=== PATIENT | female | born 1990 | race Caucasian/White ===

== ENCOUNTER 2016-09-11 21:17 | Emergency (ER) | payer BC ==
--- NOTE | 2016-09-12 00:18 | ER Document Report ---
ED General - General Chief Complaint: Palpitations Stated Complaint: CHEST PAIN Time Seen by Provider: 09/12/16 00:16 Notes: Patient is a 25-year-old female who presents with complaints of intermittent episodes of where she becomes emotionally upset and feels as if her heart starts racing. She gets numbness and tingling to her fingertips and develops chest pain. She says when she calms down the symptoms go away. They have been ongoing intermittently for 2 weeks. She says that she is otherwise stressed. Her dad is dying of a terminal lung illness, she had to recently move homes. She said she has been on Prozac and trazodone. She stopped seeing her psychiatrist and counselor approximately 2 months ago. She has been off her Prozac for approximately 2 weeks. TRAVEL OUTSIDE OF THE [place] IN LAST 30 DAYS: No Past Medical History - Social History Smoking Status: Current Every Day Smoker Chew tobacco use (# tins/day): No Frequency of alcohol use: None Drug Abuse: None Family History: Reviewed & Not Pertinent Renal/ Medical History: Denies: Hx Peritoneal Dialysis - Immunizations Hx Diphtheria, Pertussis, Tetanus Vaccination: Yes Review of Systems - Review of Systems Notes: My Normal Review Basic REVIEW OF SYSTEMS: CONSTITUTIONAL : Denies fever, chills, or sweats. Denies recent illness. EENT: Denies eye, ear, throat, or mouth pain or symptoms. Denies nasal or sinus congestion. CARDIOVASCULAR: intermittent Chest pain RESPIRATORY: Denies cough, cold, or chest congestion. Denies shortness of breath, difficulty breathing, or wheezing. GASTROINTESTINAL: Denies abdominal pain. Denies nausea, vomiting, or diarrhea. GENITOURINARY: Denies difficulty urinating, painful urination, burning, frequency, or blood in urine. FEMALE GENITOURINARY: Denies vaginal bleeding, abnormal or irregular periods. MUSCULOSKELETAL: Denies neck or back pain or joint pain or swelling. SKIN: Denies rash or skin lesions. NEUROLOGICAL: Denies altered mental status or loss of consciousness. Denies headache. Denies weakness or paralysis or loss of use of either side. Denies problems with gait or speech. Denies sensory or motor loss. PSYCHIATRIC: Anxiety and stress. ALL OTHER SYSTEMS REVIEWED AND NEGATIVE. Physical Exam - Vital signs Vitals: Temp Pulse Resp BP Pulse Ox 98.1 F 75 16 117/67 100 09/11/16 21:53 09/11/16 21:53 09/11/16 21:53 09/11/16 21:53 09/11/16 21:53 - Notes Notes: General Appearance: Well nourished, alert, cooperative, no acute distress, no obvious discomfort. Vitals: reviewed, See vital signs table. Head: no swelling or tenderness to the head Eyes: PERRL, EOMI, Conjuctiva clear Mouth: No decreasd moisture Neck: Supple, no neck tenderness, No thyromegaly Lungs: No wheezing, No rales, No rhonci, No accessory muscle use, good air exchange bilaterally. Heart: Normal rate, Regular rythm, No murmur, no rub Abdomen: Normal BS, soft, No rigidity, No abdominal tenderness, No guarding, no rebound, no abdominal masses, no organomegaly Extremities: strength 5/5 in all extremities, good pulses in all extremities, no swelling or tenderness in the extremities, no edema. Skin: warm, dry, appropriate color, no rash Neuro: speech clear, oriented x 3, normal affect, responds appropriately to questions. Psychiatric: Patient becomes emotionally upset when talking about the episodes. She starts to cry. Course - Vital Signs Vital signs: Temp Pulse Resp BP Pulse Ox 98.1 F 75 19 129/75 H 99 09/11/16 21:53 09/11/16 21:53 09/12/16 01:00 09/12/16 01:14 09/12/16 01:00 - EKG Interpretation by Me Additional EKG results interpreted by me: 09/12/16 00:17 EKG is reviewed and interpreted by me. EKG shows normal sinus rhythm with rate of [address] segment elevation or depression. Patient does have some nonspecific T-wave inversions in anterior leads. TX interval, QRS duration, QTc intervals are within normal range. No old EKG available for comparison. - Transfer of Care Notes: 09/12/16 07:00 Patient's symptoms are very stress related. She starts crying when she talks about the stress that she has been under. I did offer for her to speak with psychiatry. Patient initially said yes and then changes her mind and wants to go home and follow-up with her psychiatrist. I will re-prescribe her Prozac. She denies being suicidal. Patient encouraged her come back to ER anytime for reevaluation and for treatment. I informed her that I strongly suggest to return immediately if she has any thoughts of suicide or feel that she has worsening depression or uncontrollable anxiety. Patient agrees with plan and will be discharged home. Dictation of this chart was performed using voice recognition software; therefore, there may be some unintended grammatical errors. Discharge - Discharge Clinical Impression: Anxiety, Stress Condition: Good Disposition: HOME, SELF-CARE Additional Instructions: Anxiety The physician feels that some of your health problems are being caused by anxiety. Anxiety affects your health in many ways. Anxiety alone can cause palpitations, sweats, chest pains, abdominal pains, shortness of breath, and headaches. It contributes to ulcer disease, high blood pressure, irritable bowel syndrome, and has been shown to cause flare-ups of many other diseases. Anxiety is not a simple disorder to treat. If the anxiety is due to recent life stresses, you may simply need time to "work through" the changes. If the anxiety is due to an underlying unhappiness with yourself or due to psychiatric disturbance, professional help will be needed. Your physician can refer you for further help if needed. Anti-anxiety medication is occasionally given if the stress is acute or if you are having trouble sleeping. Chronic or frequent use of these medications is not a good idea because the body becomes reliant on it, preventing you from dealing with life's normal stresses. Please have a low threshold to return to the ER if you have severe depression, thoughts of wanting to hurt yourself, or feel that your symptoms are worsening. Please call your psychiatrist to make a close follow up appointment. Prescriptions: Fluoxetine HCl [Prozac 20 mg Capsule] 20 mg PO DAILY #30 capsule
[2016-09-12 01:15] VITALS: BP 129/75
--- NOTE | 2016-09-12 08:39 | EKG REPORT ---
SEVERITY:- ABNORMAL ECG - SINUS RHYTHM NONSPECIFIC T ABNORMALITIES, ANTERIOR LEADS : Confirmed by: Stormy Bhatia MD 12-Sep-2016 08:38:38
== END 2016-09-12 01:13 | disposition home or self-care (01) ==
LOC: ER 21:17
DX: F41.9 Anxiety disorder, unspecified (principal); F43.9 Reaction to severe stress, unspecified; R07.9 Chest pain, unspecified; F17.200 Nicotine dependence, unspecified, uncomplicated; Z79.899 Other long term (current) drug therapy
CPT/HCPCS: 93005; 93010; 99284

== ENCOUNTER 2018-05-12 21:22 | Emergency (ER) | payer BC ==
--- NOTE | 2018-05-13 00:55 | ER Document Report ---
ED Medical Screen (RME) - General Chief Complaint: Abdominal Pain Stated Complaint: ABDOMINAL PAIN Time Seen by Provider: 05/13/18 00:51 Notes: Patient is a 27-year-old female presents to the emergency department for an extensive history of lower left abdominal pain. Patient states she was diagnosed with Crohn's disease and potential ulcerative colitis. States she has had intermittent left lower abdominal pain since July. States today the pain got to be so severe which is why she presents to the emergency room. Patient's also complaining of a generalized malodorous vaginal discharge and intermittent dysuria. Patient states she was recently treated for a urinary tract infection. Patient also complaining of a generalized vaginal rash. Past medical history: Depression, Crohn's, ulcerative colitis Medications: Prozac, trazodone, gabapentin Allergies: None Last menstrual period 05/05/2018 GENERAL: Alert, interacts well. No acute distress. ABDOMEN: Soft, Non-distended. Bowel sounds present in all 4 quadrants. Generalized pain left lower quadrant. EXTREMITIES: Moves all 4 extremities spontaneously. No edema, normal radial and dorsalis pedis pulses bilaterally. No cyanosis. I have greeted and performed a rapid initial assessment of this patient. A comprehensive ED assessment and evaluation of the patient, analysis of test results and completion of the medical decision making process will be conducted by additional ED providers. TRAVEL OUTSIDE OF THE [place] IN LAST 30 DAYS: No - Related Data Allergies/Adverse Reactions: No Known Allergies Allergy (Unverified 05/12/18 21:28) Past Medical History Renal/ Medical History: Denies: Hx Peritoneal Dialysis - Immunizations Hx Diphtheria, Pertussis, Tetanus Vaccination: Yes Physical Exam - Vital signs Vitals: Temp Pulse Resp BP Pulse Ox 98.2 F 65 16 110/77 99 05/12/18 22:11 05/12/18 22:11 05/12/18 22:11 05/12/18 22:11 05/12/18 22:11 Course - Vital Signs Vital signs: Temp Pulse Resp BP Pulse Ox 98.2 F 65 16 110/77 99 05/12/18 22:11 05/12/18 22:11 05/12/18 22:11 05/12/18 22:11 05/12/18 22:11
[2018-05-13 01:40] LABS: ABSOLUTE EOSINOPHILS # (AUTO) 0.1 10^3/uL (0.0-0.6); ABSOLUTE LYMPHOCYTES (AUTO) 2.1 10^3/uL (0.5-4.7); ABSOLUTE MONOCYTES (AUTO) 0.9 10^3/uL (0.1-1.4); ABSOLUTE NEUT (AUTO) 4.5 10^3/uL (1.7-8.2); BASOPHILS % (AUTO) 0.6 % (0-2); EOSINOPHILS % (AUTO) 1.5 % (0-6); HEMATOCRIT 37.9 % (36.0-47.0); LYMPHOCYTES % (AUTO) 27.4 % (13-45); MEAN CORPUSCULAR HEMOGLOBIN 30.6 pg (27.0-33.4); MEAN CORPUSCULAR HGB CONC 34.4 g/dL (32.0-36.0); MEAN CORPUSCULAR VOLUME 89 fl (80-97); MONOCYTES % (AUTO) 12.3 % (3-13); PLATELET COUNT 295 10^3/uL (150-450); RED BLOOD COUNT 4.26 10^6/uL (3.72-5.28); RED CELL DISTRIBUTION WIDTH 13.6 % (11.5-14.0); SEGMENTED NEUTROPHILS % (AUTO) 58.2 % (42-78); TOTAL CELLS COUNTED % (AUTO) 100 %; WHITE BLOOD COUNT 7.7 10^3/uL (4.0-10.5)
[2018-05-13 01:47] LABS: AMORPHOUS SEDIMENT,URINE TRACE /HPF; APPEARANCE,URINE CLOUDY; BILIRUBIN,URINE NEGATIVE (NEGATIVE); COLOR,URINE YELLOW; GLUCOSE, URINE NEGATIVE (NEGATIVE); KETONES,URINE NEGATIVE (NEGATIVE); LEUKOCYTE ESTERASE,URINE NEGATIVE (NEGATIVE); NITRITE,URINE NEGATIVE (NEGATIVE); PROTEIN,URINE NEGATIVE (NEGATIVE); URINE SPECIFIC GRAVITY 1.011; UROBILINOGEN,URINE NEGATIVE mg/dL (<2.0)
[2018-05-13 01:48] LABS: ALANINE AMINOTRANSFERASE 22 U/L (9-52); ALBUMIN 4.7 g/dL (3.5-5.0); ALKALINE PHOSPHATASE 51 U/L (38-126); ANION GAP 9 (5-19); ASPARTATE AMINO TRANSFERASE 20 U/L (14-36); BILIRUBIN,DIRECT 0.1 mg/dL (0.0-0.4); BILIRUBIN,TOTAL 0.2 mg/dL (0.2-1.3); BLOOD UREA NITROGEN 9 mg/dL (7-20); CALCIUM 9.6 mg/dL (8.4-10.2); CARBON DIOXIDE 29 mmol/L (22-30); CHLORIDE 102 mmol/L (98-107); GLUCOSE 86 mg/dL (75-110); LIPASE 61.5 U/L (23-300); POTASSIUM 3.8 mmol/L (3.6-5.0); SODIUM 140.3 mmol/L (137-145); TOTAL PROTEIN 7.5 g/dL (6.3-8.2)
--- NOTE | 2018-05-13 03:33 | RADIOLOGY REPORT (SQ) ---
EXAM DESCRIPTION: CT ABDOMEN PELVIS WITH IV CONTRAST COMPLETED DATE/TME: 05/13/2018 00:00 CLINICAL HISTORY: 27 years, Female, LLQ pain COMPARISON: None. TECHNIQUE: 648 Images stored on PACS. All CT scanners at this facility use dose modulation, iterative reconstruction, and/or weight based dosing when appropriate to reduce radiation dose to as low as reasonably achievable (ALARA). [facility]: Dose Right [facility]: CareDose [facility]: Dose Right [facility]: Teradose 4D [facility]: [employer] LIMITATIONS: None. FINDINGS: Limited evaluation of the lung bases is unremarkable. Osseous structures are grossly intact. Fatty infiltrative change to the liver. The spleen, adrenal glands, pancreas, kidneys are unremarkable. The gallbladder is present. No evidence for bowel obstruction. Normal appendix. IUD in place. Follicular change to the ovaries bilaterally. Abundant stool in the colon. No free air or free fluid. IMPRESSION: Abundant stool in the colon. IUD in place. Fatty infiltrative change to the liver. TECHNICAL DOCUMENTATION: Quality ID # [id number]: Final reports with documentation of one or more dose reduction techniques (e.g., Automated exposure control, adjustment of the mA and/or kV according to patient size, use of iterative reconstruction technique) copyright 2010 [employer]- All Rights Reserved
[2018-05-13] MEDS ORDERED: LORAZEPAM 1 MG TABLET PO ONE (03:56)
[2018-05-13 04:05] LABS: RBCS (WET MOUNT) FEW RBCS SEEN; T.VAGINALIS (WET MOUNT) NO TRICHOMONAS SEEN; WBCS (WET MOUNT) 2+ WBCS SEEN; YEAST (WET MOUNT) NO YEAST SEEN
[2018-05-13 04:06] LABS: BACTERIA (WET MOUNT) 3+ BACTERIA SEEN; EPITHELIALS (WET MOUNT) 3+ EPITHELIALS SEEN
[2018-05-13] MEDS ORDERED: AZITHROMYCIN 250 MG TABLET PO ONE (04:35)
[2018-05-13] MEDS ORDERED: METRONIDAZOLE 500 MG TABLET PO ONE (04:35)
[2018-05-13] MEDS ORDERED: CEFTRIAXONE INJ 250 MG VIAL IM ONE (04:35)
[2018-05-13] MEDS ORDERED: LIDOCAINE 1% INJ-PF (10 MG/ML) 30 ML SDV ONE (04:54)
--- NOTE | 2018-05-13 05:32 | ER Document Report ---
ED General - General Chief Complaint: Abdominal Pain Stated Complaint: ABDOMINAL PAIN Time Seen by Provider: 05/13/18 00:51 Notes: Patient is a 27-year-old female presents to the emergency department for an extensive history of lower left abdominal pain. Patient states she was diagnosed with Crohn's disease and potential ulcerative colitis. States she has had intermittent left lower abdominal pain since July. States today the pain got to be so severe which is why she presents to the emergency room. Patient's also complaining of a generalized malodorous vaginal discharge and intermittent dysuria. Patient states she was recently treated for a urinary tract infection. Patient also complaining of a generalized vaginal rash. Past medical history: Depression, Crohn's, ulcerative colitis Medications: Prozac, trazodone, gabapentin Allergies: None Last menstrual period 05/05/2018 TRAVEL OUTSIDE OF THE [place] IN LAST 30 DAYS: No - Related Data Allergies/Adverse Reactions: No Known Allergies Allergy (Unverified 05/12/18 21:28) Past Medical History - General Information source: Patient - Social History Smoking Status: Unknown if Ever Smoked Family History: Reviewed & Not Pertinent Patient has suicidal ideation: No Patient has homicidal ideation: No Renal/ Medical History: Denies: Hx Peritoneal Dialysis - Immunizations Hx Diphtheria, Pertussis, Tetanus Vaccination: Yes Review of Systems - Review of Systems Constitutional: No symptoms reported EENT: No symptoms reported Cardiovascular: No symptoms reported Respiratory: No symptoms reported Gastrointestinal: See HPI Genitourinary: See HPI Female Genitourinary: See HPI Musculoskeletal: No symptoms reported Skin: See HPI Hematologic/Lymphatic: No symptoms reported Neurological/Psychological: No symptoms reported Physical Exam - Vital signs Vitals: Temp Pulse Resp BP Pulse Ox 98.2 F 65 16 110/77 99 05/12/18 22:11 05/12/18 22:11 05/12/18 22:11 05/12/18 22:11 05/12/18 22:11 - Notes Notes: GENERAL: Alert, interacts well. No acute distress. HEAD: Normocephalic, atraumatic. EYES: Pupils equal, round, and reactive to light. Extraocular movements intact. ENT: Oral mucosa moist, tongue midline. NECK: Full range of motion. Supple. Trachea midline. LUNGS: Clear to auscultation bilaterally, no wheezes, rales, or rhonchi. No respiratory distress. HEART: Regular rate and rhythm. No murmur ABDOMEN: Soft, Non-distended. Bowel sounds present in all 4 quadrants. Generalized pain left lower quadrant. No McBurney's point tenderness, no Kerr sign noted. Slight suprapubic tenderness noted EXTREMITIES: Moves all 4 extremities spontaneously. No edema, normal radial and dorsalis pedis pulses bilaterally. No cyanosis. BACK: no cervical, thoracic, lumbar midline tenderness. No saddle anesthesia, normal distal neurovascular exam. No CVA tenderness noted bilaterally NEUROLOGICAL: Alert and oriented x3. Normal speech. cranial nerves II through XII grossly intact PSYCH: Normal affect, normal mood. SKIN: Warm, dry, normal turgor. 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 Erythematous based Vesicular lesions Labia minora and labia majora. Yellow malodorous discharge noted in the cul-de-sac with positive cervical motion tenderness noted no adnexal tenderness noted bilaterally. Course - Re-evaluation Re-evalutation: Patient CBC and CMP are completely normal. Patient's urine shows no signs of infection. Patient's wet mount does show signs of bacterial vaginosis. Patient's gonorrhea and chlamydia are currently pending. Patient's HSV testing is also currently pending. Patient CT shows constipation with a fatty liver. Discussed treatment for PID at length with the patient. Also discussed treating her constipation. Patient states she will buy [id number] MiraLAX. Discussed treating her for herpes simplex virus. Patient stable for discharge. - Vital Signs Vital signs: Temp Pulse Resp BP Pulse Ox 98.0 F 66 14 103/74 100 05/13/18 01:42 05/13/18 01:42 05/13/18 01:42 05/13/18 01:42 05/13/18 01:42 - Laboratory Result Diagrams: 05/13/18 01:08 05/13/18 01:08 Discharge - Discharge Clinical Impression: Pelvic inflammatory disease (PID), Bacterial vaginosis, Herpes simplex Constipation Qualifiers: Constipation type: unspecified constipation type Qualified Code(s): K59.00 - Constipation, unspecified Condition: Stable Disposition: HOME, SELF-CARE Instructions: Genital Herpes ([facility]), Acyclovir ([facility]), Constipation ([facility]), Vaginosis, Bacterial ([facility]), Pelvic Inflammatory Disease ([facility]) Additional Instructions: As we discussed you have been seen and treated in the emergency department for pelvic inflammatory disease. Please make sure you take antibiotics as prescribed. I am also treating you for herpes simplex virus. Please take [id number] MiraLAX for your generalized constipation. Please refrain from sexual activity while on medications. Please make sure you follow-up with the health department for continued testing. Please make sure you return to the em ergency room should he have any other concerning symptoms. Prescriptions: Acyclovir [Acyclovir 400 mg Tablet] 400 mg PO TID 10 Days tablet Doxycycline Hyclate 100 mg PO BID 14 Days capsule Metronidazole [Flagyl 500 mg Tablet] 500 mg PO BID 14 Days tablet Forms: Return to Work Referrals: [facility] [NO LOCAL MD] - Follow up as needed
[2018-05-13 05:54] LABS: CHLAM PCR DETECTED (NOT DETECT); GON PCR NOT DETECTED (NOT DETECT)
[2018-05-13 06:06] VITALS: BP 103/57
[2018-05-15 14:39] LABS: HSV I DNA Positive (Negative)
[2018-05-16 09:31] LABS: HSV II DNA Negative (Negative)
== END 2018-05-13 06:07 | disposition home or self-care (01) ==
LOC: ER 21:22
DX: N73.9 Female pelvic inflammatory disease, unspecified (principal); N76.0 Acute vaginitis; B96.89 Other specified bacterial agents as the cause of diseases classified elsewhere; K59.00 Constipation, unspecified; B00.9 Herpesviral infection, unspecified; K76.0 Fatty (change of) liver, not elsewhere classified; R10.32 Left lower quadrant pain; F32.9 Major depressive disorder, single episode, unspecified; Z79.899 Other long term (current) drug therapy; Z87.19 Personal history of other diseases of the digestive system
CPT/HCPCS: 99284; 96372; 87529; 36415; 87210; 83690; 85025; 81025; 80053; 81001; 87250; 87491; 87591; 74177; J3490; J0696

== ENCOUNTER 2018-10-01 18:52 | Emergency (ER) | payer BC ==
--- NOTE | 2018-10-01 20:00 | ER Document Report ---
ED Medical Screen (RME) - General Chief Complaint: Chest Pain Stated Complaint: CHEST PAIN Time Seen by Provider: 10/01/18 19:29 Mode of Arrival: Ambulatory Information source: Patient Notes: Patient is a 27-year-old female presented to the emergency department chief complaint of palpitations and intermittent chest pain. Patient reports recent increase on her Vyvanse medication. Patient also reports history of amphetamine and benzodiazepine abuse. She states that she is supposed to be taking Klonopin however she has not been taking it as she is concerned she will become addicted. Patient reports a very strong family history of cardiac disease and is concerned that something is going on with her heart. She states that on her apple watch her heart rate goes into the 190s with minimal exertion. Exam: Patient calm, cooperative, answering all questions appropriately. Heart sounds S1-S2 present with no ectopy noted. Lung sounds clear and equal bilaterally. I have greeted and performed a rapid initial assessment of this patient. A comprehensive ED assessment and evaluation of the patient, analysis of test results and completion of the medical decision making process will be conducted by additional ED providers. I have specifically instructed the patient or family members with the patient to immediately return to any nursing staff should anything change in the patient's condition or with their chief complaint. This medical record was dictated with voice recognizing software. There may be grammatical, syntax errors that are unintended. TRAVEL OUTSIDE OF THE [place] IN LAST 30 DAYS: No - Related Data Allergies/Adverse Reactions: No Known Allergies Allergy (Verified 10/01/18 18:59) Past Medical History - Social History Frequency of alcohol use: Occasional Drug Abuse: Marijuana Renal/ Medical History: Denies: Hx Peritoneal Dialysis - Immunizations Hx Diphtheria, Pertussis, Tetanus Vaccination: Yes Physical Exam - Vital signs Vitals: Temp Pulse Resp BP Pulse Ox 97.8 F 97 18 103/69 98 10/01/18 19:16 10/01/18 19:16 10/01/18 19:16 10/01/18 19:16 10/01/18 19:16 Course - Vital Signs Vital signs: Temp Pulse Resp BP Pulse Ox 97.8 F 97 18 103/69 98 10/01/18 19:16 10/01/18 19:16 10/01/18 19:16 10/01/18 19:16 10/01/18 19:16
--- NOTE | 2018-10-01 20:06 | RADIOLOGY REPORT (SQ) ---
EXAM DESCRIPTION: CHEST SINGLE VIEW COMPLETED DATE/TIME: 10/01/2018 7:50 pm REASON FOR STUDY: chest pain COMPARISON: None. EXAM PARAMETERS: NUMBER OF VIEWS: One view. TECHNIQUE: Single frontal radiographic view of the chest acquired. RADIATION DOSE: NA LIMITATIONS: None. FINDINGS: LUNGS AND PLEURA: No consolidation, masses or pneumothorax. No pleural effusion. MEDIASTINUM AND HILAR STRUCTURES: No masses. Contour normal. HEART AND VASCULAR STRUCTURES: Heart normal in size. Normal vasculature. BONES: No acute findings. HARDWARE: None in the chest. OTHER: No other significant finding. IMPRESSION: NO ACUTE RADIOGRAPHIC FINDING IN THE CHEST. TECHNICAL DOCUMENTATION: JOB ID: [id number] [place]-72 2010 [employer]- All Rights Reserved Reading location - IP/workstation name: [email or web address]
[2018-10-01 20:11] LABS: ABSOLUTE EOSINOPHILS # (AUTO) 0.1 10^3/uL (0.0-0.6); ABSOLUTE LYMPHOCYTES (AUTO) 1.5 10^3/uL (0.5-4.7); ABSOLUTE MONOCYTES (AUTO) 0.5 10^3/uL (0.1-1.4); ABSOLUTE NEUT (AUTO) 4.9 10^3/uL (1.7-8.2); BASOPHILS % (AUTO) 0.6 % (0-2); EOSINOPHILS % (AUTO) 1.1 % (0-6); HEMATOCRIT 41.5 % (36.0-47.0); HEMOGLOBIN 14.3 g/dL (12.0-15.5); LYMPHOCYTES % (AUTO) 21.6 % (13-45); MEAN CORPUSCULAR HEMOGLOBIN 30.9 pg (27.0-33.4); MEAN CORPUSCULAR HGB CONC 34.4 g/dL (32.0-36.0); MEAN CORPUSCULAR VOLUME 90 fl (80-97); MONOCYTES % (AUTO) 7.4 % (3-13); PLATELET COUNT 253 10^3/uL (150-450); RED BLOOD COUNT 4.62 10^6/uL (3.72-5.28); RED CELL DISTRIBUTION WIDTH 13.6 % (11.5-14.0); SEGMENTED NEUTROPHILS % (AUTO) 69.3 % (42-78); TOTAL CELLS COUNTED % (AUTO) 100 %; WHITE BLOOD COUNT 7.1 10^3/uL (4.0-10.5)
[2018-10-01 20:24] LABS: ALANINE AMINOTRANSFERASE 18 U/L (9-52); ALBUMIN 4.9 g/dL (3.5-5.0); ALKALINE PHOSPHATASE 51 U/L (38-126); ANION GAP 9 (5-19); ASPARTATE AMINO TRANSFERASE 20 U/L (14-36); BILIRUBIN,DIRECT 0.2 mg/dL (0.0-0.4); BILIRUBIN,TOTAL 0.6 mg/dL (0.2-1.3); BLOOD UREA NITROGEN 7 mg/dL (7-20); CALCIUM 9.7 mg/dL (8.4-10.2); CARBON DIOXIDE 29 mmol/L (22-30); CHLORIDE 102 mmol/L (98-107); GLUCOSE 98 mg/dL (75-110); POTASSIUM 3.6 mmol/L (3.6-5.0); SODIUM 140.2 mmol/L (137-145); TOTAL PROTEIN 7.6 g/dL (6.3-8.2)
--- NOTE | 2018-10-01 20:42 | ER Document Report ---
ED General - General Chief Complaint: Chest Pain Stated Complaint: CHEST PAIN Time Seen by Provider: 10/01/18 19:29 Primary Care Provider: ALIE THORPE MD [ACTIVE STAFF] - Follow up as needed Mode of Arrival: Ambulatory Notes: Patient is a 27-year-old female that comes emergency department for chief complaint of palpitations, rapid heart rate, occasionally tightness or discomfort in her chest. She states this is worse when she gets up and walks around. She denies dizziness, passing out, nausea/vomiting, abdominal pain, fever, shortness of breath. She states she recently had her Vyvanse increased from 30 mg to 60 mg. She smokes, she only had one soda today, denies caffeine today otherwise. 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 She has smoked marijuana, she has used cocaine, she denies either recently. She states she has family history of heart disease but on further questioning it is only very extended family at elderly ages. TRAVEL OUTSIDE OF THE [place] IN LAST 30 DAYS: No - Related Data Allergies/Adverse Reactions: No Known Allergies Allergy (Verified 10/01/18 18:59) Past Medical History - General Information source: Patient - Social History Smoking Status: Current Every Day Smoker Smoking Education Provided: Yes - <3 min Frequency of alcohol use: Occasional Drug Abuse: Marijuana Lives with: Spouse/Significant other Family History: Reviewed & Not Pertinent Patient has suicidal ideation: No Patient has homicidal ideation: No Renal/ Medical History: Denies: Hx Peritoneal Dialysis Psychiatric Medical History: Reports: Hx Anxiety, Hx Attention Deficit Hyperactivity Disorder, Hx Depression - Immunizations Hx Diphtheria, Pertussis, Tetanus Vaccination: Yes Review of Systems - Review of Systems Constitutional: No symptoms reported EENT: No symptoms reported Cardiovascular: See HPI Respiratory: No symptoms reported Gastrointestinal: No symptoms reported Genitourinary: No symptoms reported Female Genitourinary: No symptoms reported Musculoskeletal: No symptoms reported Skin: No symptoms reported Hematologic/Lymphatic: No symptoms reported Neurological/Psychological: See HPI Physical Exam - Vital signs Vitals: Temp Pulse Resp BP Pulse Ox 97.8 F 97 18 103/69 98 10/01/18 19:16 10/01/18 19:16 07/10/19 19:16 10/01/18 19:16 10/01/18 19:16 - Notes Notes: GENERAL: Alert. In no distress. Thin. HEAD: Normocephalic, atraumatic. EYES: Pupils equal, round, and reactive to light. Extraocular movements intact. ENT: Oral mucosa moist, tongue midline. Oropharynx unremarkable. Airway patent. LUNGS: Clear to auscultation bilaterally, no wheezes, rales, or rhonchi. No respiratory distress. HEART: Regular rate and rhythm. No murmur ABDOMEN: Soft, non-tender. Non-distended. GENITOURINARY: Deferred EXTREMITIES: Moves all 4 extremities spontaneously. No edema, normal radial and dorsalis pedis pulses bilaterally. No cyanosis. BACK: no cervical, thoracic, lumbar midline tenderness. No saddle anesthesia, normal distal neurovascular exam. Moves all extremities in full range of motion. NEUROLOGICAL: Alert and oriented x3. Normal speech. Cranial nerves II through XII grossly intact. PSYCH: Speaks very rapidly, leaning forward, speaks anxiously. SKIN: Warm, dry, normal turgor. No rashes or lesions noted. Course - Re-evaluation Re-evalutation: Patient is anxious but otherwise well-appearing on exam. Her heart rate is in the 90s on my evaluation. No current symptoms reported. She does state that on her Apple Watch her heart rate went up to 190 once, however she states it is more frequently in the 120s to 140s when she notices it is up. EKG without acute findings. Chest x-ray unremarkable. CBC, chemistry unremarkable. Troponin is negative. Thyroid panel is unremarkable. test is negative. Patient still has no symptoms on my evaluation. We ambulated her and her heart rate ranged from the 90s to a maximum of 105. Patient is actually quite reassured by this. Her current medication regimen seems to be okay, I strongly recommend she stop smoking, avoid caffeine, and then he will be easier to tell if her Vyvanse is affecting her negatively. I also recommended she only take Ativan as needed because of her history of addictive personality. She also was recommended to get a Holter monitor because of her reported heart rate, patient admits that she thinks the 190 was inaccurate but she states she is having enough palpitations she agrees it should be done. Discussed return precautions in detail. Patient and significant other state understanding and agreement. Stable at time of discharge. - Vital Signs Vital signs: Temp Pulse Resp BP Pulse Ox 98.0 F 97 28 H 112/65 99 10/01/18 22:31 10/01/18 19:16 10/01/18 22:31 10/01/18 22:31 10/01/18 22:16 - Laboratory Result Diagrams: 10/01/18 19:56 10/01/18 19:56 - EKG Interpretation by Me Additional EKG results interpreted by me: EKG shows sinus rhythm at a rate of 87, QTC of 462, KS interval of 136. T wave inversion in V2 (borderline), flattened T waves in aVL. No T wave inversions or ST segment changes in consecutive leads. Discharge - Discharge Clinical Impression: Palpitations, Tachycardia Condition: Stable Disposition: HOME, SELF-CARE Additional Instructions: Your work-up today is reassuring. No concerning findings are noted. I recommend that you stop smoking, avoid caffeine, stay hydrated, and continue current regimen of medications. I also recommend that you follow-up with your primary care/cardiology for Holter monitoring testing. Return if you worsen including passing out, difficulty breathing, severe pain in your chest, or any other concerning or worsening symptoms. Forms: Smoking Cessation Education Referrals: ALIE THORPE MD [ACTIVE STAFF] - Follow up as needed
[2018-10-01 21:20] LABS: FREE T4 (FREE THYROXINE) 1.35 ng/dL (0.78-2.19)
[2018-10-01 21:34] LABS: THYROID STIMULATING HORMONE 0.97 uIU/mL (0.47-4.68)
[2018-10-01 22:48] VITALS: BP 112/65
--- NOTE | 2018-10-02 00:01 | EKG REPORT ---
SEVERITY:- BORDERLINE ECG - SINUS RHYTHM BORDERLINE T ABNORMALITIES, ANT-LAT LEADS : Confirmed by: Stormy Bhatia MD 01-Oct-2018 23:59:31
== END 2018-10-01 23:13 | disposition home or self-care (01) ==
LOC: ER 18:52
DX: R00.2 Palpitations (principal); R00.0 Tachycardia, unspecified; R07.9 Chest pain, unspecified; F17.200 Nicotine dependence, unspecified, uncomplicated
CPT/HCPCS: 36415; 71045; 80053; 84439; 84443; 84484; 84703; 85025; 93005; 93010; 99285

== ENCOUNTER 2019-05-25 04:07 | Emergency (ER) | payer SELFPAY ==
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
[2019-05-25] MEDS ORDERED: LORAZEPAM INJ 2 MG/1 ML VIAL IV ONE (05:06)
--- NOTE | 2019-05-25 05:19 | RADIOLOGY REPORT (SQ) ---
Chest and left RIBS total three-view on 05/25/2019 at 4:41 AM CLINICAL INDICATION: Left rib pain COMPARISON: 10/01/2018 FINDINGS: There is mild S-shaped scoliosis of the thoracolumbar spine. The lungs are clear. There is no pneumothorax or pleural effusion. Cardiac, hilar and mediastinal contours are within normal limits. Pulmonary vascularity is within normal limits. No acute bony abnormality is noted. Specifically no acute left rib fracture is noted. IMPRESSION: No acute abnormality.
--- NOTE | 2019-05-25 06:05 | RADIOLOGY REPORT (SQ) ---
CT chest and abdomen with contrast on 05/25/2019 at 5:19 AM CLINICAL INDICATION: Left rib pain, left upper quadrant pain, injury TECHNIQUE: Multiple axial images are obtained throughout the chest and abdomen following the administration of IV contrast. This exam was performed according to our departmental dose-optimization program, which includes automated exposure control, adjustment of the mA and/or kV according to patient size and/or use of iterative reconstruction technique. Total DLP is 413.24 mGy*cm. COMPARISON: CT abdomen and pelvis from 05/13/2018 FINDINGS: CHEST: The lungs are clear. There is no pleural or pericardial effusion. There is no thoracic adenopathy. There is some residual thymus in the anterior mediastinum. There is no thoracic aortic aneurysm or dissection. No acute bony abnormality of the thorax is noted. ABDOMEN: The solid abdominal organs are unremarkable. There is no abdominal adenopathy. There is no free fluid or free air within the abdomen. The abdominal portion of the GI tract is unremarkable. No bony abnormality is noted. IMPRESSION: No acute abnormality in the chest or abdomen.
[2019-05-25 06:47] VITALS: BP 103/50
== END 2019-05-25 06:47 | disposition home or self-care (01) ==
LOC: ER 04:07
DX: S29.9XXA Unspecified injury of thorax, initial encounter (principal); S39.91XA Unspecified injury of abdomen, initial encounter; F19.10 Other psychoactive substance abuse, uncomplicated; Y04.0XXA Assault by unarmed brawl or fight, initial encounter; F17.200 Nicotine dependence, unspecified, uncomplicated
CPT/HCPCS: 99284; 96374; 71101; 71260; 74160; J2060

== ENCOUNTER 2019-10-10 23:57 | Emergency (ER) | payer SELFPAY ==
--- NOTE | 2019-10-11 00:39 | ER Document Report ---
ED Medical Screen (RME) - General Chief Complaint: Other Stated Complaint: CAT SCRATCH Time Seen by Provider: 10/11/19 00:37 Mode of Arrival: Ambulatory Information source: Patient Notes: This 28-year-old female presented to the emergency room today stating that she was scratched by a feral cat 2 days ago and [place] she called the health department who told her that she should go to the emergency room and get a rabies vaccination so she does not. TRAVEL OUTSIDE OF THE [place] IN LAST 30 DAYS: No - Related Data Allergies/Adverse Reactions: No Known Allergies Allergy (Verified 10/11/19 00:37) Past Medical History Renal/ Medical History: Denies: Hx Peritoneal Dialysis Psychiatric Medical History: Reports: Hx Anxiety, Hx Attention Deficit Hyperactivity Disorder, Hx Depression - Immunizations Hx Diphtheria, Pertussis, Tetanus Vaccination: Yes Physical Exam - Vital signs Vitals: Temp Pulse Resp BP Pulse Ox 97.9 F 85 16 108/66 99 10/11/19 00:11 10/11/19 00:11 10/11/19 00:11 10/11/19 00:11 10/11/19 00:11 Course - Vital Signs Vital signs: Temp Pulse Resp BP Pulse Ox 97.9 F 85 16 108/66 99 10/11/19 00:11 10/11/19 00:11 10/11/19 00:11 10/11/19 00:11 10/11/19 00:11
[2019-10-11 04:18] VITALS: BP 104/68
--- NOTE | 2019-10-13 18:44 | ER Document Report ---
Entered by CARLOS MATT SCRIBE 10/11/19 0320 Acting as scribe for:CHAPIS MESA IV, MD ED General - General Chief Complaint: Other Stated Complaint: CAT SCRATCH Time Seen by Provider: 10/11/19 00:37 Mode of Arrival: Ambulatory Information source: Patient Notes: This 28 year old female patient presents to the ED today with complaints of sustaining a superficial cat scratch on her left wrist x3 days ago. Patient states that she was instructed by the health department to come to the ED for a rabies shot because there was a rabid eng in [place] that may have come into contact with the cat she was possibly exposed to. Patient also reports anxiety and depression about the possibility of wilfrid rabies. She notes a history of OCD and states that she has been off of her OCD meds for x1 month due to her psychiatrist losing her license. She states that she has an appointment with a new psychiatrist scheduled on 10/19 and that she has a virtual appointment with a therapist at the OCD clinic in [place] on 10/12. Denies fever, body aches, or suicidal ideation. TRAVEL OUTSIDE OF THE [place] IN LAST 30 DAYS: No - Related Data Allergies/Adverse Reactions: No Known Allergies Allergy (Verified 10/11/19 00:37) Past Medical History - General Information source: Patient - Social History Smoking Status: Current Every Day Smoker Smoking Education Provided: No Frequency of alcohol use: Social Drug Abuse: Marijuana Lives with: Spouse/Significant other Family History: Reviewed & Not Pertinent Patient has suicidal ideation: No Patient has homicidal ideation: No Neurological Medical History: Reports: Hx Migraine Psychiatric Medical History: Reports: Hx Anxiety, Hx Attention Deficit Hyperactivity Disorder, Hx Depression, Hx Obsessive Compulsive Disorder - Immunizations Hx Diphtheria, Pertussis, Tetanus Vaccination: Yes Review of Systems - Review of Systems Constitutional: See HPI. denies: Fever EENT: No symptoms reported Cardiovascular: No symptoms reported Respiratory: No symptoms reported Gastrointestinal: No symptoms reported Genitourinary: No symptoms reported Female Genitourinary: No symptoms reported Musculoskeletal: See HPI. denies: Muscle pain Skin: See HPI Hematologic/Lymphatic: No symptoms reported Neurological/Psychological: See HPI, Depression, Anxiety. denies: Suicidal ideation -: Yes All other systems reviewed and negative Physical Exam - Vital signs Vitals: Temp Pulse Resp BP Pulse Ox 97.9 F 85 16 108/66 99 10/11/19 00:11 10/11/19 00:11 10/11/19 00:11 10/11/19 00:11 10/11/19 00:11 Interpretation: Normal - General General appearance: Alert, Anxious In distress: None - HEENT Head: Normocephalic, Atraumatic Eyes: Normal Pupils: PERRL - Respiratory Respiratory status: No respiratory distress Chest status: Nontender Breath sounds: Normal Chest palpation: Normal - Cardiovascular Rhythm: Regular Heart sounds: Normal auscultation Murmur: No Friction rub: No Gallop: None auscultated - Abdominal Inspection: Normal Distension: No distension Bowel sounds: Normal Tenderness: Nontender - Abdomen soft Organomegaly: No organomegaly - Back Back: Normal, Nontender - Extremities General upper extremity: Normal inspection General lower extremity: Normal inspection - Psychological Associated symptoms: Anxious, Tearful - Skin Skin irregularity: other - 1 cm superficial scratch noted to left wrist Course - Re-evaluation Re-evalutation: 10/11/19 04:03 Diagnosis, plan of care discussed with patient. All questions were answered prior to discharge. Emergency signs and symptoms, reasons to return to the emergency department discussed with patient. - Vital Signs Vital signs: Temp Pulse Resp BP Pulse Ox 97.5 F 69 14 104/68 99 10/11/19 04:17 10/11/19 04:17 10/11/19 04:17 10/11/19 04:17 10/11/19 04:17 Discharge - Discharge Clinical Impression: Anxiety about health Cat scratch of forearm Qualifiers: Encounter type: initial encounter Laterality: left Qualified Code(s): S50.812A - Abrasion of left forearm, initial encounter; W55.03XA - Scratched by cat, initial encounter Disposition: HOME, SELF-CARE Additional Instructions: Follow-up with the care providers you have scheduled appointments with. Return to the Emergency Department without delay if any worse. HOME CARE INSTRUCTIONS & INFORMATION: Thank you for choosing us for your medical needs. We hope you're satisfied with the care you received. After you leave, you must properly care for your problem and, at the same time, observe its progress. Any condition can change. Some illnesses can change rapidly over hours or days. If your condition worsens, return to the Emergency Department or see your physician promptly. ABOUT YOUR X-RAYS AND EKG'S: If you had an EKG or X-rays taken, they have been read by the Emergency Physician. The X-rays and EKG's will also be read by a Radiologist or Mixing Machine Attendant within 24 hours. If discrepancies are noted, you will be notified by telephone. Please be certain the ED has a correct telephone number & address where you can be reached. Also, realize that some fractures or abnormalities do not show up on initial X-rays. If your symptoms continue, see your physician. ABOUT YOUR LABORATORY TEST: If you had laboratory tests, the results have been reviewed by the Emergency Physician. Some test results (for example cultures) may not be available for several days. You will be contacted if any test result shows you need additional treatment. Please be certain the ED has a correct telephone number and address where you can be reached. ABOUT YOUR MEDICATIONS: You will receive instructions on how to take your medicine on the prescription label you receive. Additional information may be provided by the Pharmacy. If you have questions afterwards, call the ED for clarification or further instructions. Some prescribed medications may cause drowsiness. Do not perform tasks such as driving a car or operating machinery without consulting your Pharmacist. If you feel you need a refill of pain medication, your condition will need re-evaluation. Please do not call for a refill of any medication. ABOUT YOUR SIGNATURE: Signature of this document acknowledges to followin. Understanding that you received emergency treatment and that you may be released before al medical problems are known or treated. Please be certain the ED has a correct phone number & address where you can be reached. 2. Acknowledgement that you will arrange for follow-up care as recommended. 3. Authorization for the Emergency Physician to provide information to your follow-up Physician in order to maximize your care. AT ANY TIME, IF YOUR SYMPTOMS CHANGE SIGNIFICANTLY OR WORSEN OR YOU DEVELOP NEW SYMPTOMS, RETURN TO THE EMERGENCY DEPARTMENT IMMEDIATELY FOR RE-EVALUATION. OUR GOAL IS TO PROVIDE EXCELLENT MEDICAL CARE! WE HOPE THAT WE HAVE MET YOUR EXPECTATIONS DURING YOUR EMERGENCY DEPARTMENT VISIT AND THAT YOU FEEL YOU HAVE RECEIVED EXCELLENT CARE! Prescriptions: Hydroxyzine Pamoate [Vistaril] 25 mg PO DAILY PRN #15 capsule PRN Reason: Anxiety I personally performed the services described in the documentation, reviewed and edited the documentation which was dictated to the scribe in my presence, and it accurately records my words and actions.
== END 2019-10-11 04:19 | disposition home or self-care (01) ==
LOC: ER 23:57
DX: T14.8XXA Other injury of unspecified body region, initial encounter (principal); W55.03XA Scratched by cat, initial encounter; Y93.K9 Activity, other involving animal care; Z53.20 Procedure and treatment not carried out because of patient's decision for unspecified reasons

== ENCOUNTER 2020-01-22 20:22 | Emergency (ER) | payer SELFPAY ==
[2020-01-22 20:42] VITALS: BP 109/71
--- NOTE | 2020-01-22 20:53 | ER Document Report ---
ED Medical Screen (RME) - General Chief Complaint: Chest Pain Stated Complaint: CHEST PAIN Time Seen by Provider: 01/22/20 20:45 TRAVEL OUTSIDE OF THE [place] IN LAST 30 DAYS: No - HPI Notes: 01/22/20 20:51 29-year-old female to the emergency department with complaints of rapid heart rate and chest pain that began tonight while she was waiting to go to dinner with her . She states that it came on suddenly. She states that she has had in the past history of SVT but has not happened in well over a year. She states that she also at the time that she had SVT was on Vyvanse as well as Adderall. She states she is no longer on any stimulants. She admits that she has in the past used cocaine which was approximately 3 years ago. She does not use any sort of stimulant or amphetamine type of medicine for over 1 year. She states that she felt a little bit short of breath as well. She states she also felt fatigued. She denies any other complaints. An EKG and triage she has a heart rate of 117 and a sinus tachycardia. On brief medical screening exam she is tachycardic. However her lungs are clear to auscultation. I performed a brief medical screening exam on the patient determined that the patient needs further evaluation and management by main side provider. I have placed initial orders to help expedite care. - Related Data Allergies/Adverse Reactions: No Known Allergies Allergy (Verified 10/11/19 00:37) Past Medical History Neurological Medical History: Reports: Hx Migraine Renal/ Medical History: Denies: Hx Peritoneal Dialysis Psychiatric Medical History: Reports: Hx Anxiety, Hx Attention Deficit Hyperactivity Disorder, Hx Depression, Hx Obsessive Compulsive Disorder - Immunizations Hx Diphtheria, Pertussis, Tetanus Vaccination: Yes Physical Exam - Vital signs Vitals: Temp Pulse Resp BP Pulse Ox 97.5 F 125 H 20 109/71 100 01/22/20 20:41 01/22/20 20:41 01/22/20 20:41 01/22/20 20:41 01/22/20 20:41 Course - Vital Signs Vital signs: Temp Pulse Resp BP Pulse Ox 97.5 F 125 H 20 109/71 100 01/22/20 20:41 01/22/20 20:41 01/22/20 20:41 01/22/20 20:41 01/22/20 20:41
--- NOTE | 2020-01-22 21:37 | RADIOLOGY REPORT (SQ) ---
EXAM DESCRIPTION: Chest radiograph two views CLINICAL HISTORY: palpitations COMPARISON: May 25, 2019 FINDINGS: Cardiac silhouette is within normal limits. There is no focal parenchymal or pleural disease. There is no acute osseous process visualized. IMPRESSION: No evidence of acute cardiopulmonary disease.
[2020-01-22 21:40] LABS: ABSOLUTE MONOCYTES (AUTO) 0.7 10^3/uL (0.1-1.4); TOTAL CELLS COUNTED % (AUTO) 100 %
[2020-01-22 21:48] LABS: ABSOLUTE EOSINOPHILS # (AUTO) 0.1 10^3/uL (0.0-0.6); ABSOLUTE LYMPHOCYTES (AUTO) 3.1 10^3/uL (0.5-4.7); ABSOLUTE NEUT (AUTO) 5.6 10^3/uL (1.7-8.2); BASOPHILS % (AUTO) 0.4 % (0-2); EOSINOPHILS % (AUTO) 1.5 % (0-6); HEMATOCRIT 40.2 % (36.0-47.0); HEMOGLOBIN 13.8 g/dL (12.0-15.5); LYMPHOCYTES % (AUTO) 32.1 % (13-45); MEAN CORPUSCULAR HEMOGLOBIN 30.8 pg (27.0-33.4); MEAN CORPUSCULAR HGB CONC 34.2 g/dL (32.0-36.0); MEAN CORPUSCULAR VOLUME 90 fl (80-97); MONOCYTES % (AUTO) 7.1 % (3-13); PLATELET COUNT 267 10^3/uL (150-450); RED BLOOD COUNT 4.47 10^6/uL (3.72-5.28); RED CELL DISTRIBUTION WIDTH 13.6 % (11.5-14.0); SEGMENTED NEUTROPHILS % (AUTO) 58.9 % (42-78); WHITE BLOOD COUNT 9.6 10^3/uL (4.0-10.5)
[2020-01-22 21:59] LABS: ALBUMIN 4.5 g/dL (3.5-5.0); ALKALINE PHOSPHATASE 51 U/L (38-126); ANION GAP 11 (5-19); ASPARTATE AMINO TRANSFERASE 19 U/L (14-36); BILIRUBIN,DIRECT 0.1 mg/dL (0.0-0.4); BILIRUBIN,TOTAL 0.2 mg/dL (0.2-1.3); BLOOD UREA NITROGEN 11 mg/dL (7-20); CALCIUM 10.1 mg/dL (8.4-10.2); CARBON DIOXIDE 24 mmol/L (22-30); CHLORIDE 105 mmol/L (98-107); GLUCOSE 94 mg/dL (75-110); POTASSIUM 4.2 mmol/L (3.6-5.0); TOTAL PROTEIN 7.3 g/dL (6.3-8.2)
--- NOTE | 2020-01-22 22:23 | EKG REPORT ---
SEVERITY:- OTHERWISE NORMAL ECG - SINUS TACHYCARDIA : Confirmed by: Lucio Arango MD 22-Jan-2020 22:22:53
== END 2020-01-22 22:54 | disposition left against medical advice (07) ==
LOC: ER 20:22
DX: R00.0 Tachycardia, unspecified (principal); R07.9 Chest pain, unspecified; R06.02 Shortness of breath; R53.83 Other fatigue; Z86.79 Personal history of other diseases of the circulatory system; Z53.20 Procedure and treatment not carried out because of patient's decision for unspecified reasons
CPT/HCPCS: 36415; 71046; 80053; 83735; 84443; 84484; 84703; 85025; 93005; 93010; 99281